=== PATIENT | male | born 1960 | race Caucasian/White ===

== ENCOUNTER 2016-08-04 08:58 | Emergency (ER) | payer MEDICAID ==
[~2016-08-04] VITALS: Ht 175.3 cm; Wt 60.3 kg
[~2016-08-04 08:58] MED LIST: BACTRIM1 TAB; D-20001 TAB; MULTIVITAMIN1 SGL; NORVIR100 M2 PO; NORVIR80 MG/ML; PRILOSEC40 MG; REYATAZ300 MG PO; TRUVADA1 TAB PO; ZANTAC 150150 MG; [UNRECOGNIZED DRUG - OTHER]; [UNRECOGNIZED DRUG - OTHER]
[2016-08-04 10:40] VITALS: BP 109/60
== END 2016-08-04 10:40 | disposition home or self-care (01) ==
LOC: ED 08:58
DX: J32.9 Chronic sinusitis, unspecified (principal); J20.9 Acute bronchitis, unspecified; Z21 Asymptomatic human immunodeficiency virus [HIV] infection status; Z86.19 Personal history of other infectious and parasitic diseases; Z79.899 Other long term (current) drug therapy
CPT/HCPCS: J7512; J7613; J7644

== ENCOUNTER 2017-01-03 19:10 | Emergency (ER) | payer MEDICAID ==
[2017-01-03 20:31] VITALS: BP 120/98
== END 2017-01-03 20:25 | disposition home or self-care (01) ==
LOC: ED 19:10
DX: L50.0 Allergic urticaria (principal); T37.0X5A Adverse effect of sulfonamides, initial encounter; Y92.89 Other specified places as the place of occurrence of the external cause
CPT/HCPCS: J1200

== ENCOUNTER 2017-04-02 20:10 | Emergency (ER) | payer MEDICAID ==
[~2017-04-02] VITALS: Ht 175.3 cm; Wt 61.2 kg
[2017-04-02 22:13] VITALS: BP 112/76
== END 2017-04-02 22:13 | disposition home or self-care (01) ==
LOC: ED 20:10
DX: S93.115A Dislocation of interphalangeal joint of left lesser toe(s), initial encounter (principal); W18.49XA Other slipping, tripping and stumbling without falling, initial encounter; Y93.89 Activity, other specified; Y99.8 Other external cause status; Y92.89 Other specified places as the place of occurrence of the external cause